=== PATIENT | male | born 1995 | race Caucasian/White ===

== ENCOUNTER 2022-05-02 18:55 | Emergency (ER) | payer OTHER ==
[2022-05-02] MEDS ORDERED: Ketorolac 30 MG/ML SDV ONE (19:17)
[2022-05-02] MEDS ORDERED: Amoxicillin/Clavulanate K 875-125 MG Tab ONE (19:17)
[2022-05-02] MEDS ORDERED: Ofloxacin 0.3% Ophth Soln 5 ML Bottle ONE (19:17)
== END 2022-05-02 19:58 | disposition home or self-care (01) ==
LOC: JP.ED 18:55
DX: H66.91 Otitis media, unspecified, right ear (principal); H60.501 Unspecified acute noninfective otitis externa, right ear; J32.9 Chronic sinusitis, unspecified
CPT/HCPCS: 96372; 99282; A9270; J1885